=== PATIENT | female | born 1985 | race African-American/Black ===

== ENCOUNTER 2016-05-28 17:13 | Emergency (ER) | payer OTHER ==
[~2016-05-28] VITALS: Ht 165.1 cm; Wt 55.0 kg
[2016-05-28 18:09] LABS: HEMATOCRIT 33.5 % (36.0-46.0); MCH 22.3 PG (29.0-34.0); MCHC 31.3 G/DL (30.0-36.0); MCV 71.1 FL (83-99); MEAN PLAT.VOLUME 9.1 uM^3 (9.5-12.4); PLATELET COUNT 278 K/uL (156-360); RBC DIS.WIDTH-SD 46.1 % (39-53); RED BLOOD COUNT 4.71 M/uL (3.80-5.20); WHITE BLOOD COUNT 6.1 K/uL (4.1-10.2)
[2016-05-28 18:10] LABS: CHLORIDE 99 mEq/L (99-109); POTASSIUM 3.3 mEq/L (3.7-5.4); SODIUM 135 mEq/L (136-147)
[2016-05-28 18:12] LABS: GLUCOSE 95 mg/dL (70-99)
[2016-05-28 18:13] LABS: ANION GAP 10 MEQ/L (2-14)
[2016-05-28 18:14] LABS: TOTAL BILIRUBIN 0.3 mg/dL (0.0-1.0)
[2016-05-28 18:15] LABS: ALKALINE PHOSPHATASE 70 IU/L (3-129)
[2016-05-28 18:16] LABS: GFR ESTIMATE (CALCULATED) > 59 mL/min/
[2016-05-28 18:17] LABS: UREA NITROGEN (BUN) 5 mg/dL (9-23)
[2016-05-28 18:19] LABS: LIPASE 17 U/L (1.0-51.0)
[2016-05-28 20:36] LABS: ADD MIUA? NO; BILIRUBIN NEGATIVE; BLOOD NEGATIVE; COLOR YELLOW ((YELLOW)); GLUCOSE (STRIP) NEGATIVE; KETONES NEGATIVE; LEUKOCYTES NEGATIVE; NITRITE NEGATIVE; PROTEIN (STRIP) NEGATIVE; SPECIFIC GRAVITY 1.017 (1.000-1.030)
[2016-05-28] MEDS ORDERED: TESSALON PERLE100 MG PO (20:54)
[2016-05-28] MEDS ORDERED: ZOFRAN ODT4 MG PO (20:54)
[2016-05-28] MEDS ORDERED: MOTRIN800 MG PO (20:54)
[2016-05-28 21:56] VITALS: BP 128/74
== END 2016-05-28 21:57 | disposition home or self-care (01) ==
LOC: EME 17:13
PROVIDERS: Physician Assistant
DX: J06.9 Acute upper respiratory infection, unspecified (principal); J20.8 Acute bronchitis due to other specified organisms; R11.2 Nausea with vomiting, unspecified; E86.0 Dehydration; Z87.891 Personal history of nicotine dependence
CPT/HCPCS: 71020; 80053; 81003; 83690; 85027; 87651 90; 94640; 94664; 99281; 99285; J1885; J2405; J2930; J7030